=== PATIENT | female | born 1935 | race Caucasian/White ===

== ENCOUNTER 2016-09-16 14:23 | Emergency (ER) | payer MEDICARE, OTHER ==
[2016-09-16 14:38] VITALS: BMI 28.0
[2016-09-16] MEDS ORDERED: Bacitracin 500 Units/gm Oint Foilpak UD ONE (15:54)
[2016-09-16 15:56] VITALS: BP 160/90; PULSE 76; RESP 20; TEMP 97.6; O2SAT 96
--- NOTE | 2016-09-16 18:39 | RAD ---
PROCEDURE: Radiographs of the Right Forearm HISTORY: r/o fx COMPARISON: None available. TECHNIQUE: Frontal and lateral views obtained. FINDINGS: BONES: No definite evidence of acute displaced fracture nor dislocation. There is a large elliptical shaped localized soft tissue swelling involving the dorsal soft tissues of the proximal forearm likely representing a subcutaneous and stoma. Followup CT scan could be performed for further evaluation if necessary. JOINT SPACES: Mild degenerate changes right elbow. Small olecranon enthesophyte. OTHER FINDINGS: None. IMPRESSION: No evidence of acute displaced fracture nor dislocation. Large of localizer soft tissue swelling proximal dorsal soft tissues likely representing a hematoma
--- NOTE | 2016-09-16 18:39 | C.PDOC ---
History Of Present Illness The patient, a 81 y/o female, presents to the ED for evaluation of right arm and right knee pain which began after she sustained a fall earlier today. Patient states she placed a warm pack on her right forearm and a band-aid on her right knee [employer]. Patient is ambulatory without limping. She denies head injury/LOC, extremity numbness/weakness. Chief Complaint (Nursing): Upper Extremity Problem/Injury History Per: Patient History/Exam Limitations: no limitations Onset/Duration Of Symptoms: Days Current Symptoms Are (Timing): Still Present Quality: "Pain" Additional History Per: Patient Past Medical History Reviewed: Historical Data, Nursing Documentation, Vital Signs Vital Signs: Last Vital Signs Temp 97.6 F 09/16/16 15:55 Pulse 76 09/16/16 15:55 Resp 20 09/16/16 15:55 BP 160/90 H 09/16/16 15:55 Pulse Ox 96 09/16/16 22:55 - Medical History PMH: Diabetes, HTN, Hypercholesterolemia, Osteoporosis Surgical History: No Surg Hx Family History: States: Unknown Family Hx - Social History Hx Tobacco Use: No Hx Alcohol Use: No Hx Substance Use: No - Immunization History Hx Tetanus Toxoid Vaccination: No Hx Influenza Vaccination: Yes Hx Pneumococcal Vaccination: No Review Of Systems Except As Marked, All Systems Reviewed And Found Negative. Musculoskeletal: Positive for: Arm Pain (right), Other (+right knee pain ) Neurological: Negative for: Weakness, Numbness, Other (head injury/LOC ) Physical Exam - Physical Exam Appears: Non-toxic, No Acute Distress Skin: Normal Color, Warm, Dry, Other (+moderate sized hematoma to right forearm. abrasion over anterior aspect of right knee, no active bleeding ) Head: Atraumatic, Normacephalic, No Tenderness, No Swelling, No Abrasion, No Laceration Eye(s): bilateral: Normal Inspection, PERRL, EOMI Ear(s): Bilateral: Normal Nose: Normal, No Discharge, No Epistaxis, No Septal Hematoma Oral Mucosa: Moist Throat: Normal, No Erythema, No Exudate Neck: Normal ROM, Supple Chest: Symmetrical, No Deformity, No Tenderness Cardiovascular: Rhythm Regular, No Murmur Respiratory: Normal Breath Sounds, No Rales, No Rhonchi, No Wheezing Gastrointestinal/Abdominal: Soft, No Tenderness, No Guarding, No Rebound Back: Normal Inspection, No Vertebral Tenderness, No Paraspinal Tenderness Extremity: Normal ROM, Tenderness (mild to right forearm), No Calf Tenderness, Capillary Refill (less ), No Deformity, No Swelling Pulses: Left Dorsalis Pedis: Normal, Right Dorsalis Pedis: Normal Neurological/Psych: Oriented x3, Normal Speech, Normal Cognition, Normal Sensation Gait: Steady ED Course And Treatment O2 Sat by Pulse Oximetry: 96 (on RA) Pulse Ox Interpretation: Normal Medical Decision Making Medical Decision Making: Impression: 81 y/o female with right knee and right forearm pain Plan: * right forearm XR * reassess and disposition Progress : Right forearm XR ordered, results are unremarkable. On reassessment, pt is resting comfortably, showing no signs of distress and is stable for discharge. Advised to f/u with PMD within 1-2 days for further evaluation. Disposition - Disposition Referrals: Babar Manjarrez, [Non-Staff] - Disposition: HOME/ ROUTINE Disposition Time: 15:30 Condition: GOOD Additional Instructions: Thank you for letting us take care of you today. Your provider was Dr. Forbes. You were treated for knee and . The emergency medical care you received today was directed at your acute symptoms. If you were prescribed any medication, please fill it and take as directed. It may take several days for your symptoms to resolve. Return to the Emergency Department if your symptoms worsen, do not improve, or if you have any other problems. Please contact your doctor or call one of the physicians/clinics you have been referred to that are listed on the Patient Visit Information form that is included in your discharge packet. Bring any paperwork you were given at discharge with you along with any medications you are taking to your follow up visit. Our treatment cannot replace ongoing medical care by a primary care provider (PCP) outside of the emergency department. Thank you for allowing the [facility] team to be part of your care today. Follow up with your doctor in 2-3 days for re-evaluation. Return to the emergency room right away if you have numbness to your arm. APPLY ICE TO THE SWOLLEN AREA. Instructions: Abrasion (ED) - Clinical Impression Clinical Impression: Traumatic hematoma of forearm, Knee abrasion - Scribe Statement The provider has reviewed the documentation as recorded by the Scribe (Thi Mcgraw) Provider Attestation: All medical record entries made by the Scribe were at my direction and personally dictated by me. I have reviewed the chart and agree that the record accurately reflects my personal performance of the history, physical exam, medical decision making, and the department course for this patient. I have also personally directed, reviewed, and agree with the discharge instructions and disposition.
== END 2016-09-16 16:19 | disposition home or self-care (01) ==
LOC: C.ER 14:23
DX: S50.11XA Contusion of right forearm, initial encounter (principal); S80.211A Abrasion, right knee, initial encounter; W18.30XA Fall on same level, unspecified, initial encounter